=== PATIENT | female | born 1990 | race Two or more races ===

== ENCOUNTER 2023-09-08 09:45 | Emergency (ER) | payer OTHER ==
[~2023-09-08] VITALS: Ht 157.5 cm; Wt 53.5 kg
[2023-09-08] MEDS ORDERED: 0.9 % SODIUM CHLORIDE 1,000 ML IV STA (10:36)
[2023-09-08] MEDS ORDERED: ONDANSETRON HCL 2 MG/ML VIAL IV STA (10:37)
[2023-09-08 11:15] LABS: HEMATOCRIT 40.6 % (36.0-45.00); HEMOGLOBIN 13.9 g/dL (12.0-15.00); MEAN CELL VOLUME 92.4 fL (80.00-100.00); MEAN CORPUSCULAR HEMOGLOBIN 31.6 pg (27.00-32.0); MEAN CORPUSCULAR HGB CONC 34.2 g/dl (32.0-36.0); PLATELET COUNT 286 K/uL (150-450); RED BLOOD COUNT 4.39 M/uL (4.00-6.00); RED CELL DISTRIBUTION WIDTH 12.7 % (11.5-14.5)
[2023-09-08 11:38] LABS: CREATININE SERUM 0.69 mg/dL (0.55-1.02); GFR 99.23; POTASSIUM 3.82 mEq/L (3.5-5.1)
[2023-09-08 12:46] LABS: PH,URINE 5.5 (5.0-8.0); URINE APPEARANCE Cloudy; URINE BILIRRUBIN Negative (NEGATIVE); URINE BLOOD Negative; URINE COLOR Yellow; URINE GLUCOSE Negative (NEGATIVE); URINE LEUKOCYTE Negative; URINE NITRATE Negative; URINE PROTEIN Trace (NEGATIVE)
[2023-09-08 12:49] LABS: URINE BACTERIA 1863.5 uL (0.0-1933); URINE EPITHELIAL CELLS 59.4 uL (0.0-38.8); URINE RBC 4.5 uL (0.0-20.8); URINE WBC 4.1 uL (0.0-23.2)
== END 2023-09-08 14:17 | disposition home or self-care (01) ==
LOC: ER 09:45
PROVIDERS: General Practice
DX: K52.89 Other specified noninfective gastroenteritis and colitis (principal); K59.00 Constipation, unspecified; Z20.822 Contact with and (suspected) exposure to COVID-19